=== PATIENT | male | born 1960 | race Caucasian/White ===

== ENCOUNTER → 2017-10-01 | Outpatient (CLI) | payer MEDICARE ==
[~2017-10-01] MED LIST: AMBIEN 10MG10 MG PO; AMITRIPTYLINE25 MG PO; AMOXICILLIN 50500 MG PO; ATARAX 25MG25 MG/TAB PO; B-1100 MG PO; BACTRIM DS 8001 TAB PO; BLOOD PRESSURE MED; CALAMINE TP; CEPHALEXIN500 M1 PO; CLARITIN 1010 MG/TAB PO; CLEOCIN HC150 MG/CAP PO; COMPLETE SENIOR1 TA1 PO; DUO-KAPS1 CAP; DUO-KAPS1 CAP PO; FLEXERIL 1010 MG/TAB PO; FOLIC ACID0.4 MG PO; FOLIC ACID1 MG PO; GENTAMICIN EYE D5 ML OU; IBU600 MG PO; IMODIUM 2MG CAPS2 MG PO; LAMISIL250 MG PO; LIPITOR20 MG PO; MEDROL 4MG DOSPA4 MG PO; MOTRIN 200200 MG/TAB; MOTRIN 200200 MG/TAB PO; MOTRIN 800800 MG/TAB PO; MULTIPLE VITAMI1 CAP PO; NAPROSYN500 MG PO; NEURONTIN300 MG/CAP PO; NO HOME MEDICATIONS; PEPCID 20MG TAB20 MG PO; PERCOCET 325 MG1 TA2 PO; PREDNISONE10 MG PO; PREDNISONE20 MG PO; PRILOSEC 20MG20 MG PO; PROZAC 10MG10 MG PO; PROZAC20 MG PO; PROZAC40 MG PO; TESSALON P100 MG/CAP PO; TRAZADONE HYDR100 MG PO; TYLENOL 500MG500 MG PO; TYLENOL PM EXTR1 TA1 PO; ULTRAM 50MG TAB50 MG PO; VALIUM 5MG T5 MG/TAB PO; VERAMYST27.5 MCG/A NS; WELLBUTRIN 100100 MG PO; ZITHROMAX Z PA250 MG PO; ZOCOR5 MG; ZYRTEC5 MG; [UNRECOGNIZED DRUG - OTHER] MM
== END ==
LOC: MHCPAIN 09:44
DX: G89.29 Other chronic pain (principal); M47.27 Other spondylosis with radiculopathy, lumbosacral region; M53.3 Sacrococcygeal disorders, not elsewhere classified; M96.1 Postlaminectomy syndrome, not elsewhere classified; F17.210 Nicotine dependence, cigarettes, uncomplicated
CPT/HCPCS: G0463

== ENCOUNTER 2017-10-30 08:46 | Emergency (ER) | payer MEDICARE ==
[~2017-10-30] VITALS: Ht 172.7 cm; Wt 120.0 kg
[2017-10-30 08:55] VITALS: TEMP 99.6
[2017-10-30] MEDS ORDERED: TAMIFLU 75MG75 MG PO (09:53)
[2017-10-30] MEDS ORDERED: PROAIR HFA0.09 MG/AC IH (09:53)
[2017-10-30 10:15] VITALS: BP 144/81; PULSE 74
== END 2017-10-30 10:16 | disposition home or self-care (01) ==
LOC: COL.ER 08:46
DX: J10.1 Influenza due to other identified influenza virus with other respiratory manifestations (principal); J44.9 Chronic obstructive pulmonary disease, unspecified; F32.9 Major depressive disorder, single episode, unspecified; G89.29 Other chronic pain; M54.5 Low back pain; F17.210 Nicotine dependence, cigarettes, uncomplicated; Z87.09 Personal history of other diseases of the respiratory system; Z98.890 Other specified postprocedural states; Z79.51 Long term (current) use of inhaled steroids

== ENCOUNTER → 2018-08-26 | Outpatient (CLI) | payer MEDICARE ==
[~2018-08-26] MED LIST changes: +PROAIR HFA0.09 MG/AC IH; +TAMIFLU 75MG75 MG PO
== END ==
LOC: COL.RAD 07:24
DX: Z13.6 Encounter for screening for cardiovascular disorders (principal); I70.0 Atherosclerosis of aorta; F17.200 Nicotine dependence, unspecified, uncomplicated

== ENCOUNTER 2019-04-06 10:45 | Emergency (ER) | payer MEDICARE ==
[~2019-04-06] VITALS: Ht 172.7 cm; Wt 120.9 kg
[2019-04-06 10:50] VITALS: TEMP 97.5
[2019-04-06] MEDS ORDERED: PHENERGAN 25 TA25 MG PO (12:46)
[2019-04-06 13:19] VITALS: BP 119/62; PULSE 62
== END 2019-04-06 13:19 | disposition home or self-care (01) ==
LOC: COL.ER 10:45
DX: G43.909 Migraine, unspecified, not intractable, without status migrainosus (principal); Z79.51 Long term (current) use of inhaled steroids
CPT/HCPCS: J0780; J1100; J1200; J1885

== ENCOUNTER → 2019-04-30 | Outpatient (CLI) | payer MEDICARE ==
[~2019-04-30] MED LIST changes: +PHENERGAN 25 TA25 MG PO
== END ==
LOC: COL.RAD 12:44
DX: M99.73 Connective tissue and disc stenosis of intervertebral foramina of lumbar region (principal); M41.86 Other forms of scoliosis, lumbar region; M51.16 Intervertebral disc disorders with radiculopathy, lumbar region; N39.45 Continuous leakage

== ENCOUNTER 2019-05-13 08:02 | Outpatient (CLI) | payer MEDICARE ==
[~2019-05-13] VITALS: Ht 172.7 cm; Wt 119.3 kg
[2019-05-13] VITALS (7 sets, daily range): BP systolic 108–141; BP diastolic 55–79; PULSE 64–69; TEMP 98.1
--- NOTE | 2019-05-13 09:22 | NUR ---
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
--- NOTE | 2019-05-13 10:30 | NUR ---
Pt to EU 9 per cart s/p LP. Pt resting well.
--- NOTE | 2019-05-13 11:45 | NUR ---
Pt has ambulated, voided and laura PO intake s n/v.
--- NOTE | 2019-05-13 11:50 | NUR ---
Pt discharged per w/c by nurse with friend.
== END 2019-05-13 12:05 | disposition home or self-care (01) ==
LOC: COL.RAD 08:02
DX: M48.061 Spinal stenosis, lumbar region without neurogenic claudication (principal); M47.816 Spondylosis without myelopathy or radiculopathy, lumbar region; M99.73 Connective tissue and disc stenosis of intervertebral foramina of lumbar region; G89.29 Other chronic pain
CPT/HCPCS: Q9965

== ENCOUNTER → 2019-05-13 | Outpatient (CLI) | payer MEDICARE ==
[~2019-05-13] MED LIST changes: +ATIVAN 0.50.5 MG/TAB PO; -COMPLETE SENIOR1 TA1 PO; +FLONASE SENSIM9.9 ML NS; +MULTIVITAMIN SEN PO; -VERAMYST27.5 MCG/A NS
== END ==
LOC: MHCPAIN 08:13
DX: G89.29 Other chronic pain (principal); M47.817 Spondylosis without myelopathy or radiculopathy, lumbosacral region; M54.16 Radiculopathy, lumbar region; M53.3 Sacrococcygeal disorders, not elsewhere classified; M96.1 Postlaminectomy syndrome, not elsewhere classified
CPT/HCPCS: G0463

== ENCOUNTER 2019-06-01 09:00 | Outpatient (RCR) | payer MEDICARE | END 2019-06-11 12:59 | disposition home or self-care (01) | LOC: WSPT 09:00 | DX: M96.1 Postlaminectomy syndrome, not elsewhere classified (principal) ==

== ENCOUNTER 2019-09-11 10:15 | Outpatient (CLI) | payer MEDICARE ==
[~2019-09-11] VITALS: Ht 172.7 cm; Wt 121.7 kg
[2019-09-11] MEDS ORDERED: MOTRIN 800800 MG/TAB PO (10:27)
[2019-09-11] MEDS ORDERED: ZESTRIL40 MG PO (10:32)
[2019-09-11 10:35] VITALS: BP 160/80; PULSE 67
[2019-09-11 11:45] VITALS: BP 131/54; PULSE 66
[2019-09-11 12:00] VITALS: BP 110/52; PULSE 65
[2019-09-11 12:30] VITALS: BP 122/63; PULSE 70
[2019-09-11 13:00] VITALS: BP 120/78; PULSE 72
--- NOTE | 2019-09-11 13:20 | NUR ---
pt discharged via w/c to car with friends
== END 2019-09-11 13:30 | disposition home or self-care (01) ==
LOC: COL.RAD 10:15
DX: M54.2 Cervicalgia (principal)
CPT/HCPCS: Q9967

== ENCOUNTER → 2019-09-22 | Outpatient (RCR) | payer MEDICARE ==
[~2019-09-22] MED LIST changes: +ZESTRIL40 MG PO
== END | disposition home or self-care (01) ==
LOC: WSPT → WSC 06-24 10:47 → WSPT 06-30 15:15 → WSC 07-28 10:00 → WSPT 07-30 10:00 → WSC 08-04 10:00 → WSPT 08-06 10:00
DX: M96.1 Postlaminectomy syndrome, not elsewhere classified (principal); G89.29 Other chronic pain

== ENCOUNTER → 2019-11-18 | Outpatient (CLI) | payer MEDICARE | LOC: MHCPAIN 08:40 | DX: M54.12 Radiculopathy, cervical region (principal); M47.22 Other spondylosis with radiculopathy, cervical region; M96.1 Postlaminectomy syndrome, not elsewhere classified; F17.210 Nicotine dependence, cigarettes, uncomplicated | CPT/HCPCS: G0463 ==

== ENCOUNTER → 2019-12-03 | Outpatient (CLI) | payer MEDICARE | LOC: MHCPAIN 08:19 | DX: M54.2 Cervicalgia (principal) | CPT/HCPCS: J1100; Q9967 ==

== ENCOUNTER 2019-12-05 10:26 | Emergency (ER) | payer MEDICARE ==
[~2019-12-05] VITALS: Ht 172.7 cm; Wt 125.0 kg
[2019-12-05 10:31] VITALS: TEMP 98
[2019-12-05 12:26] VITALS: BP 108/58; PULSE 64
== END 2019-12-05 12:24 | disposition home or self-care (01) ==
LOC: COL.ER 10:26
DX: G43.909 Migraine, unspecified, not intractable, without status migrainosus (principal); K50.90 Crohn's disease, unspecified, without complications; F17.210 Nicotine dependence, cigarettes, uncomplicated; Z90.89 Acquired absence of other organs; Z79.51 Long term (current) use of inhaled steroids
CPT/HCPCS: J1885; J2550

== ENCOUNTER → 2020-02-10 | Outpatient (CLI) | payer MEDICARE | LOC: MHCPAIN 07:56 | DX: M54.2 Cervicalgia (principal); M54.12 Radiculopathy, cervical region; G89.29 Other chronic pain | CPT/HCPCS: G0463 ==

== ENCOUNTER 2020-02-18 08:00 | Outpatient (RCR) | payer MEDICARE | END 2020-02-25 | disposition home or self-care (01) | LOC: WSPT | DX: M47.812 Spondylosis without myelopathy or radiculopathy, cervical region (principal) ==

== ENCOUNTER → 2020-03-03 | Outpatient (CLI) | payer MEDICARE ==
[~2020-03-03] MED LIST changes: +CLEOCIN HCL300 MG PO
== END ==
LOC: MHCPAIN 08:31
DX: M47.812 Spondylosis without myelopathy or radiculopathy, cervical region (principal); M54.2 Cervicalgia
CPT/HCPCS: J1100; Q9967

== ENCOUNTER 2020-03-05 15:58 | Emergency (ER) | payer MEDICARE ==
[~2020-03-05] VITALS: Ht 172.7 cm; Wt 121.4 kg
[~2020-03-05 15:58] MED LIST changes: -CLEOCIN HCL300 MG PO
[2020-03-05 16:19] VITALS: TEMP 98.1
[2020-03-05] MEDS ORDERED: CEPHALEXIN500 M1 PO ×2 (16:32)
[2020-03-05] MEDS ORDERED: CLEOCIN HCL300 MG PO (16:34)
[2020-03-05 16:40] VITALS: BP 115/75; PULSE 70
== END 2020-03-05 16:40 | disposition home or self-care (01) ==
LOC: COL.ER 15:58
DX: L08.9 Local infection of the skin and subcutaneous tissue, unspecified (principal); I10 Essential (primary) hypertension; E78.5 Hyperlipidemia, unspecified; Z79.899 Other long term (current) drug therapy; Z98.890 Other specified postprocedural states

== ENCOUNTER → 2020-03-16 | Outpatient (CLI) | payer MEDICARE ==
[~2020-03-16] MED LIST changes: +CLEOCIN HCL300 MG PO
== END ==
LOC: MHCPAIN 07:57
DX: M47.812 Spondylosis without myelopathy or radiculopathy, cervical region (principal); M54.2 Cervicalgia; M54.12 Radiculopathy, cervical region; G89.29 Other chronic pain
CPT/HCPCS: G0463

== ENCOUNTER 2020-03-21 09:00 | Outpatient (RCR) | payer MEDICARE ==
[2020-04-06] MEDS ORDERED: MELATONIN5 M1 SL (10:17)
[2020-04-06] MEDS ORDERED: HCTZ 25MG TAB25 MG PO (10:17)
== END 2020-05-29 | disposition home or self-care (01) ==
LOC: WSPT
DX: M47.812 Spondylosis without myelopathy or radiculopathy, cervical region (principal)

== ENCOUNTER → 2020-03-31 | Outpatient (CLI) | payer MEDICARE | LOC: MHCPAIN 07:41 | DX: M47.812 Spondylosis without myelopathy or radiculopathy, cervical region (principal); M54.2 Cervicalgia; G89.29 Other chronic pain; M54.12 Radiculopathy, cervical region | CPT/HCPCS: J1100; Q9967 ==

== ENCOUNTER → 2020-04-13 | Outpatient (CLI) | payer MEDICARE ==
[~2020-04-13] MED LIST changes: +HCTZ 25MG TAB25 MG PO; +MELATONIN5 M1 SL
== END ==
LOC: MHCPAIN 08:33
DX: M47.812 Spondylosis without myelopathy or radiculopathy, cervical region (principal); M54.2 Cervicalgia
CPT/HCPCS: G0463

== ENCOUNTER → 2020-06-29 | Outpatient (CLI) | payer MEDICARE | LOC: COL.PUL 06-22 11:30 | DX: R06.02 Shortness of breath (principal); F17.200 Nicotine dependence, unspecified, uncomplicated ==

== ENCOUNTER → 2020-07-05 | Outpatient (CLI) | payer MEDICARE | LOC: COL.PUL 07:32 | DX: R06.02 Shortness of breath (principal); F17.210 Nicotine dependence, cigarettes, uncomplicated ==

== ENCOUNTER 2020-07-25 16:28 | Emergency (ER) | payer MEDICARE ==
[~2020-07-25] VITALS: Ht 172.7 cm; Wt 121.4 kg
[2020-07-25 16:41] VITALS: TEMP 97
[2020-07-25 17:31] LABS: BASO # 0.2 (0.0-0.2); BASO % 1.4 % (0.0-2.0); EOS # 0.6 (0.0-0.7); EOS % 4.4 % (0-4.0); GRAN # 6.8 (1.4-6.5); GRAN % 54.3 % (42.2-75.2); HEMATOCRIT 42.8 % (42.0-52.0); HEMOGLOBIN 14.5 g/dl (13.5-18.0); LYMPH # 3.8 (1.2-3.4); LYMPH % 30.4 % (20.0-51.0); MEAN CELL VOLUME 91 fl (80.0-100.0); MEAN CORPUSCULAR HEMOGLOBIN 31 pg (27.0-31.0); MEAN CORPUSCULAR HGB CONC 34 g/dl (33.0-37.0); MONO # 1.2 (0.1-0.6); MONO % 9.3 % (1.7-9.3); PLATELET COUNT 281 K/mm3 (130-400); RED BLOOD COUNT 4.71 M/mm3 (4.20-5.60); REDCELL DISTRIBUTION WIDTH-CV 12.9 % (11.5-14.5)
[2020-07-25 17:37] LABS: INR 1.4 (0.8-3.0); PROTHROMBIN TIME 15.2 SECONDS (9.7-12.8)
[2020-07-25] MEDS ORDERED: ELIQUIS 5MG PO (17:39)
[2020-07-25 17:53] LABS: ALANINE AMINOTRANSFERASE 33 U/L (4-49); ALKALINE PHOSPHATASE 79 U/L (50-136); ANION GAP 10 mmol/L (7-16); AST,SGOT 33 U/L (15-37); BILIRUBIN,TOTAL 0.5 mg/dL (0.0-1.0); BLOOD UREA NITROGEN 17 mg/dL (9-20); CALCIUM 9.6 mg/dL (8.4-10.2); CARBON DIOXIDE 30 mmol/L (22-30); CHLORIDE 99 mmol/L (98-107); CREATININE, serum 1.02 (0.66-1.25); GLUCOSE 82 mg/dL (74-106); LIPASE 84 U/L (23-300); POTASSIUM 4.1 mmol/L (3.4-5.0); SODIUM 139 mmol/L (137-145); TOTAL PROTEIN 8.3 gm/dL (6.4-8.2)
[2020-07-25 17:56] LABS: C-REACTIVE PROTEIN < 0.5 mg/dL (0.0-0.9)
[2020-07-25 18:07] LABS: TROPONIN-I < 0.012 ng/mL (0.000-0.035)
[2020-07-25 21:12] VITALS: BP 107/59; PULSE 71
== END 2020-07-25 21:11 | disposition home or self-care (01) ==
LOC: COL.ER 16:28
PROVIDERS: Emergency Medicine
DX: R07.9 Chest pain, unspecified (principal); I48.91 Unspecified atrial fibrillation; F17.200 Nicotine dependence, unspecified, uncomplicated; Z90.89 Acquired absence of other organs; Z98.61 Coronary angioplasty status; Z79.01 Long term (current) use of anticoagulants
CPT/HCPCS: J7030; Q9967

== ENCOUNTER 2021-10-02 13:57 | Emergency (ER) | payer MEDICARE ==
[~2021-10-02] VITALS: Ht 172.7 cm; Wt 109.1 kg
[~2021-10-02 13:57] MED LIST changes: +ASPIRIN 81M81 MG/TA2 PO; +ATIVAN 1MG T1 MG/TAB PO; +ELIQUIS 2.5 PO; +ELIQUIS 5MG PO; +K-DUR20 MEQ PO; +LASIX 40MG TABL40 MG PO; +LIPITOR 40MG TA40 MG PO; +MAG-OX 400400 MG/TAB PO; +NORCO 325 MG-51 TAB PO; +NORVASC2.5 MG PO; +PROZAC60 MG PO; +TAMBOCOR 1100 MG/TAB PO; +TOPROL XL 25MG25 MG PO
[2021-10-02 14:06] VITALS: BP 132/76; TEMP 98.4
[2021-10-02 15:32] VITALS: PULSE 67
== END 2021-10-02 15:32 | disposition home or self-care (01) ==
LOC: COL.ER 13:57
DX: B34.9 Viral infection, unspecified (principal); I48.91 Unspecified atrial fibrillation; F32.A Depression, unspecified; G43.909 Migraine, unspecified, not intractable, without status migrainosus; E78.5 Hyperlipidemia, unspecified; K21.9 Gastro-esophageal reflux disease without esophagitis; E66.9 Obesity, unspecified; F17.210 Nicotine dependence, cigarettes, uncomplicated; Z68.36 Body mass index [BMI] 36.0-36.9, adult; Z20.822 Contact with and (suspected) exposure to COVID-19; Z79.82 Long term (current) use of aspirin; Z79.899 Other long term (current) drug therapy

== ENCOUNTER 2023-09-22 14:32 | Emergency (ER) | payer MEDICARE ==
[~2023-09-22] VITALS: Ht 172.7 cm; Wt 119.1 kg
[2023-09-22 14:35] VITALS: TEMP 97.2
[2023-09-22 14:59] LABS: BASO # 0.2 K/mm3 (0.0-0.2); BASO % 1.4 % (0.0-2.0); EOS # 0.6 K/mm3 (0.0-0.7); EOS % 5.2 % (0.0-4.0); GRAN # 5.3 K/mm3 (1.4-6.5); GRAN % 48.1 % (42.2-75.2); HEMATOCRIT 46.5 % (42.0-52.0); LYMPH # 3.9 K/mm3 (1.2-3.4); LYMPH % 35.1 % (20.0-51.0); MEAN CELL VOLUME 92 fl (80.0-100.0); MEAN CORPUSCULAR HEMOGLOBIN 32 pg (27-31); MEAN CORPUSCULAR HGB CONC 34 g/dl (33.0-37.0); MEAN PLATELET VOLUME 10.2 fl (7.4-10.4); MONO # 1.1 K/mm3 (0.1-0.6); PLATELET COUNT 243 K/mm3 (130-400); RED BLOOD COUNT 5.08 M/mm3 (4.20-5.60); REDCELL DISTRIBUTION WIDTH-CV 12.4 % (11.5-14.5)
[2023-09-22 15:25] LABS: ALANINE AMINOTRANSFERASE 24 U/L (0-55); ALKALINE PHOSPHATASE 81 U/L (40-150); ANION GAP 12 mmol/L (7-16); AST,SGOT 20 U/L (5-34); BILIRUBIN,TOTAL 0.6 mg/dL (0.2-1.2); BLOOD UREA NITROGEN 11 mg/dL (8-26); CALCIUM 9.5 mg/dL (8.4-10.2); CARBON DIOXIDE 20 mmol/L (23-31); CHLORIDE 106 mmol/L (98-107); GLUCOSE 118 mg/dL (70-99); POTASSIUM 4.4 mmol/L (3.5-4.5); SODIUM 138 mmol/L (136-145); TOTAL PROTEIN 7.2 gm/dL (6.2-8.1)
[2023-09-22 15:33] LABS: TROPONIN-I < 0.010 ng/mL (0.00-0.033)
[2023-09-22 15:46] LABS: INR 1.2 (0.8-3.0); PROTHROMBIN TIME 12.8 SECONDS (9.7-12.8)
[2023-09-22 15:55] LABS: D-DIMER < 200.00 ng/mLDDu (200-230)
[2023-09-22 17:29] VITALS: BP 114/75; PULSE 56
== END 2023-09-22 17:29 | disposition home or self-care (01) ==
LOC: COL.ER 14:32
PROVIDERS: Personal Emergency Response Attendant; Physician Assistant
DX: R07.2 Precordial pain (principal); R00.1 Bradycardia, unspecified; R06.02 Shortness of breath; F17.210 Nicotine dependence, cigarettes, uncomplicated; Z79.82 Long term (current) use of aspirin; Z98.890 Other specified postprocedural states
CPT/HCPCS: J1885

== ENCOUNTER 2024-05-13 11:43 | Emergency (ER) | payer MEDICARE ==
[~2024-05-13] VITALS: Ht 172.7 cm; Wt 120.0 kg
[2024-05-13 12:02] VITALS: BP 140/67; TEMP 98.2
[2024-05-13] MEDS ORDERED: PERCOCET 325 MG1 TA2 PO (12:54)
[2024-05-13 13:06] VITALS: PULSE 59
[2024-05-13] MEDS ORDERED: MEDROL 4MG DOSPA4 MG PO (13:10)
== END 2024-05-13 13:11 | disposition home or self-care (01) ==
LOC: COL.ER 11:43
DX: M54.16 Radiculopathy, lumbar region (principal); Z98.1 Arthrodesis status

== ENCOUNTER → 2024-05-22 | Outpatient (CLI) | payer MEDICARE | LOC: COL.RAD 09:35 | DX: M47.816 Spondylosis without myelopathy or radiculopathy, lumbar region (principal); M54.17 Radiculopathy, lumbosacral region; M41.86 Other forms of scoliosis, lumbar region ==

== ENCOUNTER → 2024-06-03 | Outpatient (CLI) | payer MEDICARE | LOC: MHCPAIN 09:06 | DX: M48.062 Spinal stenosis, lumbar region with neurogenic claudication (principal); M47.896 Other spondylosis, lumbar region; M54.17 Radiculopathy, lumbosacral region | CPT/HCPCS: G0463 ==

== ENCOUNTER → 2024-06-29 | Outpatient (CLI) | payer MEDICARE ==
[~2024-06-29] MED LIST changes: +Iohexol 300 - 10 ML VIAL ONE; +Lidocaine PF 2% (20 MG/ML) 2 ML VIAL ONE
== END ==
LOC: MHCPAIN 11:12
DX: M47.816 Spondylosis without myelopathy or radiculopathy, lumbar region (principal); M96.1 Postlaminectomy syndrome, not elsewhere classified; M54.50 Low back pain, unspecified; M41.26 Other idiopathic scoliosis, lumbar region
CPT/HCPCS: J1100; Q9967